=== PATIENT | female | born 2005 | race African-American/Black ===

== ENCOUNTER 2024-02-26 15:09 | Emergency (ER) | payer OTHER, SELFPAY ==
[2024-02-26 15:16] VITALS: BP 131/90
[2024-02-26 15:43] LABS: % Basophils 0.6 % (0-2); % Eosinophils 1.2 % (0-6); % Immature Granulocytes 0.1 % (0-0.5); % Lymphocytes 27.4 % (20.5-51.1); % Neutrophils 65.7 % (42.2-75.2); Absolute Basophils 0.1 10^3/uL (0-0.2); Absolute Eosinophils 0.1 10^3/uL (0-0.7); Absolute Lymphocytes 2.2 10^3/uL (1.2-3.4); Absolute Monocytes 0.4 10^3/uL (0.1-0.6); Absolute Neutrophils 5.3 10^3/uL (1.4-6.5); Hematocrit 42.2 % (37.0-47.0); Hemoglobin 14.4 g/dL (12.0-16.0); Mean Corp Hgb Conc. 34.1 g/dL (33.0-37.0); Mean Corpuscular Hgb 28.9 pg (27.0-31.0); Mean Corpuscular Volume 84.6 fL (81.0-99.0); Mean Platelet Volume 9.1 fL (7.4-10.4); Nucleated Red Blood Cells % 0 %; Platelet Count 370 10^3/uL (130-400); Red Blood Cell Count 4.99 10^6/uL (4.20-5.40); Red Cell Dist. Width 12.2 % (11.5-14.5); White Blood Cell Count 8.1 10^3/uL (4.8-10.8)
[2024-02-26 16:02] LABS: HCG, Serum Qualitative Screen Negative
[2024-02-26 16:03] LABS: ALT (SGPT) 16 U/L (0-35); AST (SGOT) 28 U/L (14-36); Albumin 4.6 g/dl (3.5-5.0); Alkaline Phosphatase 75 U/L (38-126); Blood Urea Nitrogen 5 mg/dl (7-17); Calcium 9.2 mg/dl (8.4-10.2); Carbon Dioxide 25 mmol/L (22-30); Chloride 104 mmol/L (98-107); Glucose 75 mg/dl (70-99); Lipase 101 U/L (23-300); Potassium 4.4 mmol/L (3.5-5.1); Sodium 140 mmol/L (135-145); Total Bilirubin 0.3 mg/dl (0.2-1.3); eGFR > 60.00
--- NOTE | 2024-02-26 18:30 | ED.GENMED ---
History of Present Illness
General
Chief Complaint: Abdominal Pain
Source: patient
Exam Limitations: none
Time Seen by Provider: 02/26/24 18:13
History of Present Illness
History of Present Illness:
19yoF with a history of PCOS presenting with her parents for evaluation of abdominal pain and diarrhea. Symptoms began about 5 days ago. She was initially having watery bowel movements. She started to take Imodium yesterday and bowel movements
have improved and are now more solid. She has had 2 bowel movement so far today. Patient continues to have abdominal pain which is primarily in the left side of her abdomen. She describes the pain as stabbing. Pain is worse with position changes
and movement. She has been taking cnlk-egl-vxxbwie medications with some improvement although she is unsure of the name. She believes her diarrhea may be related to food poisoning as she does work at [employer]. She denies any fevers, hematochezia,
dysuria. No known sick contacts or recent travel. No previous abdominal surgeries.
Phy Exam
General Physical Exam
General Presentation: well appearing and no apparent distress
General age: appears stated age
General Skin: warm and dry
General Habitus: normal
General Mental: alert
ENT Exam
ENT Exam: normocephalic
Cardiovascular Exam
Cardiovascular Exam: regular rate/rhythm
Pulmonary Exam
Pulmonary Exam: lungs clear, no respiratory distress, no rales, no crackles and no rhonchi
Gastrointestinal Exam
Gastrointestinal Exam: soft, non distended, cva tenderness and other (+LUQ and suprapubic tenderness. +L CVA tenderness. Abdomen soft, non-distended. No guarding or rebound. )
Neurological Exam
Neurological Exam: alert
Davis Coma Scale
Eye Opening: Spontaneous
Verbal Response: Oriented
Motor Response: Obeys Commands
GCS Total Score: 15
Skin Exam
Skin Exam: normal color and warm/dry
Psychiatric Exam
Psychiatric Exam: normal mood/affect
Course
Orders/Labs/Results
Orders:
Orders
02/26/24 15:21
Test Result ONCE
02/26/24 15:37
Complete Blood Count/With Diff Urgent
Comprehensive Metabolic Panel Urgent
HCG, Serum Qualitative Screen Urgent
Comment: Notify provider if positive test present
Lipase Urgent
02/26/24 18:29
CT Abd/pel W Iv And Oral Contr Urgent
Comment:
Reason For Exam: L sided abd pain
0.9% Sodium Chloride 500 ml [Nss] 500 ml IV BOLUS
Iohexol [Omnipaque] See Protocol PO NOW STA
02/26/24 18:43
Urinalysis Reflex To Culture Urgent
Date Specimen was Collected: 02/26/24
Time Specimen was Collected: 18:34
Abnormal Lab Results
02/26/24 02/26/24
15:37 18:43
BUN 5 L mg/dl
(717)
Urine Ketones Trace A
(Negative)
02/26/24 15:37
02/26/24 15:37
Vital Signs
Initial and Last Documented VS:
Initial Vital Signs
Temp Pulse Resp BP Pulse Ox
98 F 85 16 131/90 100
02/26/24 15:16 02/26/24 15:16 02/26/24 15:16 02/26/24 15:16 02/26/24 15:16
Last Documented Vital Signs
Temp Pulse Resp BP Pulse Ox
98 F 80 17 126/84 100
02/26/24 15:16 02/26/24 22:14 02/26/24 22:14 02/26/24 22:14 02/26/24 21:21
MDM/Problems Addressed
Differential Diagnosis Includes:
19yoF here with L sided abd pain and diarrhea x 5 days. Bowel movements improving after taking Imodium yesterday. No f/c. She is afebrile and hemodynamically stable. She is well appearing in no distress. No signs of peritonitis on abdominal exam.
Differential diagnosis includes but is not limited to: viral illness, food poisoning, colitis, diverticulitis, musculoskeletal pain
Initial ED plan: Abdominal labs obtained in triage which are overall unremarkable including normal white count. hCG is negative. Will check UA given CVA tenderness on exam and proceed with CT abdomen. IV fluid bolus.
*Critical Care Note
Total Time (30-74mins, 75-104mins- exclusive of procedures): Not Applicable
Update Note
Update Note:
UA bland without signs of infection. CT is negative for acute findings other than a small amount of free fluid in the pelvis and possible constipation. On reassessment, patient is feeling much better and is requesting to be discharged. Unclear
etiology of symptoms, possible viral gastroenteritis. Supportive care discussed. Advised f/u with PCP and ED return precautions discussed. She expressed understanding and is in agreement with plan. Patient discharged in stable condition.
ED Attending Note
-
Portions of this chart may have been created with voice recognition software.� Occasional wrong word or��sound alike� substitutions may have occurred due to the inherent limitations of voice recognition software.
Discharge Plan
Departure
Patient Disposition: Home (Routine Discharge)
Date of Disposition: 02/26/24
Time of Disposition: 22:05
Patient with high blood pressure during this ER visit?: No
Discharge Problem:
Acute diarrhea, Left sided abdominal pain
Instructions: Diarrhea in teens and adults
Referrals:
[facility] [Provider Group]
NONE,* [Family Provider] -
Activity Restrictions/Additional Instructions:
Drink plenty of fluids and eat a bland diet (rice, applesauce, toast, bananas). You may continue to use Imodium as needed.
Please follow-up with your family doctor. Return to the ER with any new or worsening symptoms.
Interventions
Interventions:
*Risk Screen - Suicide Last Done: 02/26/24 15:16
*General Assessment Last Done: 02/26/24 15:16
*Neglect/Abuse Screening Last Done: 02/26/24 15:16
ED- Fall Risk Assessment Last Done: 02/26/24 18:15
*Nursing Disposition Last Done: 02/26/24 22:15
XZ-Ahbfeu-Lzayhyqlwi Assessment Last Done: 02/26/24 18:15
Discharge Date and Time
Discharge Date/Time: 02/26/24 22:15
Print Language: [email or web address]
[2024-02-26] MEDS: OMNIPAQUE 50 ML PO (18:44)
[2024-02-26] MEDS: NSS 500 IV (18:44)
[2024-02-26 18:52] LABS: Urine Albumin Negative (Neg - Trace); Urine Bilirubin Negative (Negative); Urine Character Clear (Clear); Urine Color Yellow; Urine Glucose Negative (Negative); Urine Ketone Trace (Negative); Urine Leukocyte Negative (Negative); Urine Nitrite Negative (Negative); Urine Occult Blood Negative (Negative); Urine Urobilinogen Negative (Neg - 1+)
[2024-02-26 21:21] VITALS: BP 129/84
[2024-02-26 22:14] VITALS: BP 126/84
== END 2024-02-26 22:15 | disposition home or self-care (01) ==
LOC: EMR 15:09
PROVIDERS: Emergency Medicine; Physician Assistant; EMERGENCY PHYSICIAN Emergency Medicine
DX: R19.7 Diarrhea, unspecified (principal); R10.9 Unspecified abdominal pain; E28.2 Polycystic ovarian syndrome
CPT/HCPCS: 96360; 99284; 74177; 80053; 81003; 83690; 84703; 85025; Q9967